=== PATIENT | female | born 1970 | race American Indian/Alaskan Native ===

== ENCOUNTER 2017-05-02 09:24 | Inpatient (IN) | payer SELFPAY ==
[2017-05-02 10:05] LABS: Hematocrit 44.1 % (30.3-42.9); Hemoglobin 14.1 gm/dl (10.1-14.3); Mean Corpuscular HGB Conc 32 % (30-34); Mean Corpuscular Hemoglobin 27 pg (28-32); Mean Corpuscular Volume 84 fl (79-97); Platelet Count 343 K/mm3 (140-440); Red Blood Count 5.24 M/mm3 (3.65-5.03); Red Cell Distribution Width 14.9 % (13.2-15.2); White Blood Count 5.1 K/mm3 (4.5-11.0)
[2017-05-02 10:09] LABS: Anion Gap 23 mmol/L; BUN/Creatinine Ratio 12.22; Blood Urea Nitrogen 11 mg/dL (7-17); Calcium 9.3 mg/dL (8.4-10.2); Carbon Dioxide 21 mmol/L (22-30); Chloride 101.2 mmol/L (98-107); Glucose 104 mg/dL (65-100); Lipase 23 units/L (13-60); Potassium 3.7 mmol/L (3.6-5.0); Sodium 141 mmol/L (137-145)
[2017-05-02] MEDS ORDERED: ZOFRAN IV ONE (10:25)
[2017-05-02] MEDS ORDERED: NACL 0.9% 1000 ML 1,000 ML IV ONE (10:25)
[2017-05-02] MEDS ORDERED: MORPHINE IV ONE (10:25)
[2017-05-02] MEDS ORDERED: DUONEB *Not for PRN Use IH ONE (10:31)
--- NOTE | 2017-05-02 10:31 | Emergency Department Report ---
HPI - General Chief Complaint: Chest Pain Time Seen by Provider: 05/02/17 10:12 - HPI HPI: This is a 46-year-old [place] female presents the emergency department with a four-day history of midsternal chest pain and epigastric pain. It is associated with some nausea and vomiting the patient says she is having trouble came down any liquids or solids. She denies any shortness of breath at this time but says that he will occur intermittently. She tried some NyQuil for her symptoms without any relief. She says she's been laying in bed secondary to the pain. She has a past medical history of asthma and hypertension but denies any history of TX, CVA, PE/DVT. No recent surgeries, long trips or immobility. ED Past Medical Hx - Past Medical History Previous Medical History?: Yes Hx Hypertension: Yes Hx Asthma: Yes - Surgical History Past Surgical History?: No - Social History Smoking Status: Current Every Day Smoker Substance Use Type: None ED Review of Systems ROS: Stated complaint: CHEST PAIN/JACQUES Other details as noted in HPI Comment: All other systems reviewed and negative Constitutional: denies: diaphoresis, weakness Eyes: denies: eye pain, eye discharge, vision change ENT: denies: ear pain, throat pain Respiratory: cough, wheezing Cardiovascular: chest pain. denies: edema Gastrointestinal: abdominal pain, nausea, vomiting Genitourinary: denies: urgency, dysuria, discharge Musculoskeletal: denies: back pain, joint swelling, arthralgia Skin: denies: rash, lesions Neurological: denies: headache, weakness, paresthesias Physical Exam - Physical Exam Vital Signs: Vital Signs 05/02/17 09:34 Temperature 98.1 F Pulse Rate 90 Respiratory 26 H Rate Blood Pressure 115/55 O2 Sat by Pulse 98 Oximetry Physical Exam: GENERAL: The patient is well-developed well-nourished. HEENT: Normocephalic. Atraumatic. Extraocular motions are intact. Patient has moist mucous membranes. Pupils equal reactive to light bilaterally. NECK: Supple. Trachea is midline. CHEST/LUNGS: There is mild expiratory wheezing throughout the chest. No tachypnea or accessory muscle use. There is no respiratory distress noted. There is reproducible chest pain along the chest wall to palpation. HEART/CARDIOVASCULAR: Regular. There is no tachycardia. There is no gallop rub or murmur. ABDOMEN: Abdomen is soft. Unable to reproduce epigastric tenderness to palpation. Patient has normal bowel sounds. There is no abdominal distention. SKIN: Skin is warm and dry. NEURO: The patient is awake, alert, and oriented. The patient is cooperative. The patient has no focal neurologic deficits. The patient has normal speech. MUSCULOSKELETAL: There is no tenderness or deformity. There is no limitation range of motion. There is no evidence of acute injury. ED Course Vital Signs 05/02/17 09:34 Temperature 98.1 F Pulse Rate 90 Respiratory 26 H Rate Blood Pressure 115/55 O2 Sat by Pulse 98 Oximetry ED Medical Decision Making - Lab Data Result diagrams: 05/02/17 09:39 05/02/17 09:39 - EKG Data -: EKG Interpreted by Me EKG shows normal: sinus rhythm, axis, intervals, QRS complexes, ST-T waves Rate: normal - EKG Data When compared to previous EKG there are: previous EKG unavailable Interpretation: normal EKG - Radiology Data Radiology results: image reviewed interpreted by me: Chest x-ray did not show any acute process. Heart is normal shape and size. No effusions. No pneumothorax. No signs of pneumonia seen. - Medical Decision Making 46-year-old female presents with mid chest pain and epigastric pain along with nausea and vomiting. Labs thus far have been unremarkable including a negative troponin and negative d-dimer. X-rays of the chest and abdomen also did not show any acute process or etiology of her symptoms. She does have some mild wheezing and was given Solu-Medrol and breathing treatments. However the patient still continues to be in discomfort and she has not had a full cardiac workup including a stress test ever. For these reasons she will be admitted to the hospital for further evaluation and treatment has been accepted for admission by the hospitalist, Dr. Cordova. - Differential Diagnosis TX, PE, asthma, pneumonia Critical Care Time: No Critical care attestation.: If time is entered above; I have spent that time in minutes in the direct care of this critically ill patient, excluding procedure time. ED Disposition Clinical Impression: Bronchospasm Chest pain Qualifiers: Chest pain type: unspecified Qualified Code(s): R07.9 - Chest pain, unspecified Abdominal pain Qualifiers: Abdominal location: epigastric Qualified Code(s): R10.13 - Epigastric pain Nausea & vomiting Qualifiers: Vomiting type: unspecified Vomiting Intractability: non-intractable Qualified Code(s): R11.2 - Nausea with vomiting, unspecified Disposition: DC-09 OP ADMIT IP TO THIS HOSP Is pt being admited?: Yes Does the pt Need Aspirin: Yes Condition: Stable Instructions: Chest Pain (ED) Referrals: PRIMARY CARE, [Primary Care Provider] - 3-5 Days Time of Disposition: 13:15
[2017-05-02 10:41] LABS: Basophils % (Manual) 0 % (0.0-1.8); Blastocytes % (Manual) 0 %; Diff Status Complete; Eosinophils % (Manual) 0 % (0.0-4.3); RBC Morphology Normal
[2017-05-02 11:08] LABS: Alanine Aminotransferase 7 units/L (7-56); Albumin 3.7 g/dL (3.9-5); Albumin/Globulin Ratio 0.9 %; Alkaline Phosphatase 79 units/L (35-129); Lipase 22 units/L (13-60); Total Protein 7.8 g/dL (6.3-8.2)
[2017-05-02 12:25] LABS: Bacteria,Urine 2+ /HPF (Negative); Bilirubin,Urine SM (Negative); Blood,Urine NEG (Negative); Ketones,Urine 80 mg/dL (Negative); Leukocyte Esterase,Urine TR (Negative); Mucus,Urine 3+ /HPF; Nitrite,Urine NEG (Negative)
--- NOTE | 2017-05-02 12:43 | XRay Report ---
ABDOMINAL SERIES: History: Abdominal pain, chest pain. AP chest demonstrates linear scarring or atelectasis in both perihilar regions. Otherwise the lungs are clear. Normal heart and mediastinal structures. There is no evidence of free air beneath the diaphragms. The gas pattern within the abdomen is unremarkable. There is no evidence of bowel dilatation, significant air-fluid levels, or masses. Organ shadows are unremarkable. IMPRESSION: Abdominal series within normal limits.
[2017-05-02] MEDS ORDERED: PROVENTIL IH ONE (13:06)
--- NOTE | 2017-05-02 13:06 | Admit Criteria Form ---
Admission Criteria Documentation: CARDIOLOGY GRG Clinical Indications for Admission to Inpatient Care ( Place 'X' for any and all applicable criteria): Hospital admission is needed for appropriate care of the patient because of ANY ONE of the following (1): [ ] I. Hemodynamic instability as indicated by ALL of the following (1)(2)(3) (4)(5) [ ]a) Vital signs or other findings not as expected for chronic patient condition or baseline [ ]b) Instability indicated by ANY ONE of the following: [ ]i) Hypotension [ ]ii) Symptomatic Tachycardia unresponsive to treatment ( e.g., analgesia, fluids, sedation as indicated) [ ]iii) Inadequate perfusion indicated by ANY ONE of the following: [ ] 1) Lactic acidosis (> 2 mmol/L) [ ] 2) New abnormal capillary refill (> 3 seconds) [ ] 3) Reduced urine output [ ] 4) New altered mental status [ ]iv) Orthostatic vital sign changes unresponsive to treatment (e.g., fluids) [ ]v) IV inotropic or vasopressor medication required to maintain adequate blood pressure or perfusion [ ] II. Severe heart failure as indicated by ANY ONE of the following(17)(18) [ ]a) Respiratory distress [ ]b) Hypotension [ ]c) Anasarca (refractory to outpatient therapy) [ ]d) Cardiac arrhythmias of immediate concern [ ]e) Myocardial ischemia [ ] III. Cardiac arrhythmias or findings of immediate concern indicated by ANY ONE of the following (19)(20): [ ] a) Heart rhythms that are inherently dangerous or unstable indicated by ANY ONE of the following (21)(22)(23): [ ] i) Resuscitated ventricular fibrillation or cardiac arrest [ ] ii) Ventricular escape rhythm [ ] iii) Sustained ventricular tachycardia (30 seconds or more of ventricular rhythm at greater than 100 beats per minute) [ ] iv) Nonsustained ventricular tachycardia and ANY ONE of the following: [ ] 1) Suspected cardiac ischemia as cause or consequence of ventricular tachycardia [ ] 2) In setting of acute myocarditis [ ] b) Unstable cardiac conduction defects indicated by ANY ONE of the following(23)(24)(25) [ ] i) Type II second-degree atrioventricular block [ ]ii) Third-degree atrioventricular block [ ]iii) New-onset left bundle branch block with suspected myocardial ischemia [ ]c) Any heart rhythm and ANY ONE of the following (21)(22)(26)(27) (28) [ ] i) Continuous long-term ECG monitoring needed (e.g., initiation of drug requiring monitoring for more than 24 hours) [ ] ii) Patient has automatic implanted cardioverter defibrillator that is repeatedly firing, malfunctioning, or in need of immediate adjustment of settings beyond the scope of ambulatory or observation care [ ]d) Heart rhythms of concern due to ANY ONE of the following: [ ] i) Hypotension [ ] ii) Respiratory distress [ ] iii) Association with other significant symptoms (e.g., bradycardia with syncope or ongoing dizziness, supraventricular tachycardia with chest pain (14)(15)(17) [ ] IV. Monitoring for cardiac contusion beyond the scope of observation care needed [A](30)(31)(32) [ ] V. Surgical or device complication (e.g., valve replacement complication , pacemaker dysfunction) (35)(41)(44)(45)(46) [ ] . Inpatient palliative care needed. [B](49) Also use Inpatient Palliative Care Criteria [ ] VII. Nonbacterial thrombotic (marantic) endocarditis (36)(43)(47)(48) [X ] VIII. Cardiology condition, symptom, or finding for which emergency and observation care has failed or are not considered appropriate. [ ] IX. Acute valvular disease requiring inpatient as indicated by ANY ONE of the following (41) [ ]a) Acute valvular regurgitation (42) [ ]b) Noninfectious valvulitis (43) [ ]c) Obstructive valve thrombosis [ ]d) Paravalvular leak [ ]e) Other significant valvular disorder remaining after emergency or observation level of care (as appropriate) [ ]X. Pericardial disease requiring inpatient treatment as indicated by ANY ONE of the following (33)(34)(35)(36)(37) [ ]a) Suspected tamponade (38)(39)(40) [ ]b) Hemopericardium [ ]c) Other significant pericardial disorder remaining after emergency or observation level of care (as appropriate) [ ] XI. Cardiac ischemia beyond scope of emergency and observation care. [ ] XII. Hypertension requiring inpatient treatment as indicated by ANY ONE of the following (6)(7)(8) [ ]a) SBP greater than 220 mm Hg or DBP greater than 120 mmHg despite treatment [ ]b) SBP greater than 140 mm Hg or DBP greater than 100 mm Hg with evidence of acute end organ damage as indicated by ANY ONE of the following [ ] i) Altered mental status [ ] ii) Acute renal failure as indicated by new onset of ANY ONE of the following (9)(10)(11)(12)(13) [ ]1) 3-fold rise in serum creatinine from baseline [ ]2) Serum creatinine greater than 4 mg/dL ( 354 micromoles/L) with acute rise greater than 0.5 mg/dL (44.2 micromoles/L) [ ]3) Reduction of more than 75% in estimated glomerular filtration rate from baseline [ ]4) Estimated glomerular filtration rate less than 35 mL/min/1.73m2 (0.59 mL/sec/1.73m2) in child up to 18 years of age [ ]5) Cessation of urine output indicated by ALL of the following [ ]A. Adequate volume status [ ]B. Inadequate urine output as indicated by ANY ONE of the following [ ]a. Urine output less than 0.3 mL/kg/hr for 24 hours [ ]b. Anuria (urine output less than 0.1 mL/kg/hr) for 12 hours [ ] iii) Aortic dissection [ ] iv) Myocardial Ischemia [ ] v) Left ventricular heart failure [ ]vi) Retinal Hemorrhage [ ]vii) Other significant finding [ ]c) Hypertension in child requiring inpatient treatment as indicated by ALL of the following(14)(15)(16) [ ] i) Outpatient treatment not effective, not available, or not appropriate [ ]ii) SBP or DBP greater than 95th percentile for age [ ]iii) Evidence of acute end organ damage as indicated by ANY ONE of the following [ ]1) Altered mental status [ ]2) Acute renal failure as indicated by new onset of ANY ONE of the following(9)(10)(11)(12)(13) [ ]A. 3-fold rise in serum creatinine from baseline [ ]B. Serum creatinine greater than 4 mg/dL (354 micromoles/L) with acute rise greater than 0.5 mg/dL (44.2 micromoles/L) [ ]C. Reduction of more than 75% in estimated glomerular filtration rate from baseline [ ]D. Estimated glomerular filtration rate less than 35 mL/min/1.73m2 (0.59 mL/sec/1.73m2) in child up to 18 years of age [ ]E. Cessation of urine output indicated by ALL of the following [ ]a. Adequate volume status [ ]b. Inadequate urine output as indicated by ANY ONE of the following [ ]i) Urine output less than 0.3 mL/kg/hr for 24 hours [ ]ii) Anuria ( urine output less than 0.1 mL/kg/hr) for 12 hours [ ]3) Severe headache [ ]4) Visual disturbance [ ]5) Retinal hemorrhage [ ]6) Other significant finding [ ]XIII. Complications of transplanted heart indicated by ANY ONE of the following(61): [ ]a) Acute graft rejection requiring inpatient management (eg, intravenous immunosuppression)(62)(63) [ ]b) Acute graft heart failure indicated by ANY ONE of the following(64): [ ]i) Hemodynamic instability [ ]ii) Cardiac arrhythmias of immediate concern [ ]iii) Pulmonary edema that is very severe (eg, mechanical ventilation needed, imminent or likely, need for 100% oxygen to keep oxygen saturation above 90%) [ ]iv) Pulmonary edema that is persistent as indicated by ALL of the following: [ ]1) New need for oxygen therapy to keep oxygen saturation above 90% (or increased FiO2 need from baseline) [ ]2) Has not improved sufficiently with emergency department or observation care IV diuretics or other heart failure treatments[E] [ ]v) Altered mental status that is severe or persistent [ ]vi) Increased creatinine (new on laboratory test) with reduction of more than 50% in estimated glomerular filtration rate from baseline [ ]vii) Progressively (ongoing) rising creatinine (known from past laboratory test) with reduction of more than 25% in estimated glomerular filtration rate from baseline [ ]viii) Acute renal failure [ ]ix) Acute peripheral ischemia (eg, examination shows pulseless, cool, mottled, or cyanotic extremity) [ ]x) Pulmonary artery catheter monitoring needed [ ]xi) Other sign or symptom of heart failure requiring inpatient treatment (ie, too severe or not responsive to outpatient and observation care treatment) [ ]c) Infection requiring inpatient management (eg, Hemodynamic instability, need for intravenous antimicrobial treatment)(66)(67)(68)(69)(70) [ ]d) Cardiac allograft vasculopathy requiring inpatient management ( eg evidence of cardiac ischemia)(71) [ ]e) Other complication of transplanted heart (eg, stroke, severe pulmonary hypertension, severe valvular dysfunction) requiring inpatient management(72) The original [facility] [employer] content created by [facility] has been revised. The portions of the content which have been revised are identified through the use of italic text or in bold, and [facility] has neither reviewed nor approved the modified material. All other unmodified content is copyright [facility] [employer]. Please see references footnoted in the original [facility] [employer] edition 2016 Admission Criteria Met: Yes
[2017-05-02 13:15] LABS: Bilirubin,Direct < 0.2 mg/dL (0-0.2); Bilirubin,Indirect 0.2 mg/dL
[2017-05-02] MEDS ORDERED: BABY ASPIRIN PO ONE (13:15)
[2017-05-02] MEDS ORDERED: MACROBID PO ONE (14:02)
[2017-05-02] MEDS: HEPARIN SUB-Q SCH ×2 (14:12→22:01)
[2017-05-02] MEDS ORDERED: AMBIEN PO PRN (22:08)
[2017-05-02] MEDS ORDERED: DULCOLAX PR PRN (22:08)
[2017-05-02] MEDS ORDERED: PERCOCET 5/325 PO PRN (22:08)
[2017-05-02] MEDS ORDERED: TYLENOL PO PRN (22:08)
[2017-05-02] MEDS ORDERED: MILK OF MAGNESIA PO PRN (22:08)
--- NOTE | 2017-05-02 22:08 | History and Physical Report ---
History of Present Illness Date of examination: 05/02/17 Date of admission: 05/02/17 13:15 Chief complaint: Chest pain for 4 days History of present illness: HPI: This is a 46-year-old English female presents the emergency department with a four-day history of midsternal chest pain and epigastric pain. It is associated with some nausea and vomiting .The patient says she is having trouble swalowing liquids or solids. She denies any shortness of breath . She says she's been laying in bed secondary to the pain. She has a past medical history of asthma and hypertension but denies any history of RI, CVA, PE /DVT. No recent surgeries, long trips or immobilization. Previous Medical History?: Yes Hx Hypertension: Yes Hx Asthma: Past Surgical History?: No - Social History Smoking Status: Current Every Day [id number] Substance Use Type: None ROS: Stated complaint: CHEST PAIN/JACQUES Other details as noted in HPI Comment: All other systems reviewed and negative Constitutional: denies: diaphoresis, weakness Eyes: denies: eye pain, eye discharge, vision change ENT: denies: ear pain, throat pain Respiratory: cough, wheezing Cardiovascular: chest pain. denies: edema Gastrointestinal: abdominal pain, nausea, vomiting Genitourinary: denies: urgency, dysuria, discharge Musculoskeletal: denies: back pain, joint swelling, arthralgia Skin: denies: rash, lesions Neurological: denies: headache, weakness, paresthesias Medications and Allergies Allergies Allergy/AdvReac Type Severity Reaction Status Date / Time Sulfa (Sulfonamide Allergy Hives Verified 05/02/17 09:34 Antibiotics) Home Medications Medication Instructions Recorded Confirmed Last Taken Type No Known Home Medications [No 05/02/17 05/02/17 Unknown History Reported Home Medications] Active Meds: Active Medications Heparin Sodium (Porcine) (Heparin) 5,000 unit SUB-Q Q8HR JALEEL Last Admin: 05/02/17 22:01 Dose: 5,000 unit Exam - Physical Exam Narrative exam: In discomfort sec to pain - Constitutional Vitals: Temp Pulse Resp BP Pulse Ox 98.4 F 60 20 134/84 93 05/02/17 21:17 05/02/17 21:17 05/02/17 21:17 05/02/17 21:17 05/02/17 21:20 General appearance: Present: no acute distress, well-nourished - EENT Eyes: Present: PERRL ENT: hearing intact, clear oral mucosa - Neck Neck: Present: supple, normal ROM - Respiratory Respiratory effort: normal Respiratory: bilateral: CTA - Cardiovascular Heart rate: 70 Rhythm: regular Heart Sounds: Present: S1 & S2. Absent: rub, click - Extremities Extremities: no ischemia, pulses intact, pulses symmetrical, No edema Peripheral Pulses: within normal limits - Abdominal General gastrointestinal: Present: soft, non-tender, non-distended, normal bowel sounds Female genitourinary: Present: normal - Integumentary Integumentary: Present: clear, warm, dry - Musculoskeletal Musculoskeletal: gait normal, strength equal bilaterally - Psychiatric Psychiatric: appropriate mood/affect, intact judgment & insight - Neurologic Neurologic: CNII-XII intact, moves all extremities - Allied Health Allied health notes reviewed: nursing, case management Results - Labs CBC & Chem 7: 05/02/17 09:39 05/03/17 05:46 Labs: Laboratory Last Values WBC 5.1 K/mm3 (4.5-11.0) 05/02/17 09:39 RBC 5.24 M/mm3 (3.65-5.03) H 05/02/17 09:39 Hgb 14.1 gm/dl (10.1-14.3) 05/02/17 09:39 Hct 44.1 % (30.3-42.9) H 05/02/17 09:39 MCV 84 fl (79-97) 05/02/17 09:39 MCH 27 pg (28-32) L 05/02/17 09:39 MCHC 32 % (30-34) 05/02/17 09:39 RDW 14.9 % (13.2-15.2) 05/02/17 09:39 Plt Count 343 K/mm3 (140-440) 05/02/17 09:39 Add Manual Diff Complete 05/02/17 09:39 Total Counted 100 05/02/17 09:39 Seg Neuts % (Manual) 51.0 % (40.0-70.0) 05/02/17 09:39 Band Neutrophils % 3.0 % 05/02/17 09:39 Lymphocytes % (Manual) 33.0 % (13.4-35.0) 05/02/17 09:39 Reactive Lymphs % (Man) 0 % 05/02/17 09:39 Monocytes % (Manual) 12.0 % (0.0-7.3) H 05/02/17 09:39 Eosinophils % (Manual) 0 % (0.0-4.3) 05/02/17 09:39 Basophils % (Manual) 0 % (0.0-1.8) 05/02/17 09:39 Metamyelocytes % 1.0 % 05/02/17 09:39 Myelocytes % 0 % 05/02/17 09:39 Promyelocytes % 0 % 05/02/17 09:39 Blast Cells % 0 % 05/02/17 09:39 Nucleated RBC % Not Reportable 05/02/17 09:39 Seg Neutrophils # Man 2.6 K/mm3 (1.8-7.7) 05/02/17 09:39 Band Neutrophils # 0.2 K/mm3 05/02/17 09:39 Lymphocytes # (Manual) 1.7 K/mm3 (1.2-5.4) 05/02/17 09:39 Abs React Lymphs (Man) 0.0 K/mm3 05/02/17 09:39 Monocytes # (Manual) 0.6 K/mm3 (0.0-0.8) 05/02/17 09:39 Eosinophils # (Manual) 0.0 K/mm3 (0.0-0.4) 05/02/17 09:39 Basophils # (Manual) 0.0 K/mm3 (0.0-0.1) 05/02/17 09:39 Metamyelocytes # 0.1 K/mm3 05/02/17 09:39 Myelocytes # 0.0 K/mm3 05/02/17 09:39 Promyelocytes # 0.0 K/mm3 05/02/17 09:39 Blast Cells # 0.0 K/mm3 05/02/17 09:39 WBC Morphology Not Reportable 05/02/17 09:39 Hypersegmented Neuts Not Reportable 05/02/17 09:39 Hyposegmented Neuts Not Reportable 05/02/17 09:39 Hypogranular Neuts Not Reportable 05/02/17 09:39 Smudge Cells Not Reportable 05/02/17 09:39 Toxic Granulation Not Reportable 05/02/17 09:39 Toxic Vacuolation Not Reportable 05/02/17 09:39 Dohle Bodies Not Reportable 05/02/17 09:39 Pelger-Huet Anomaly Not Reportable 05/02/17 09:39 Tavia Rods Not Reportable 05/02/17 09:39 Platelet Estimate Not Reportable 05/02/17 09:39 Clumped Platelets Not Reportable 05/02/17 09:39 Plt Clumps, EDTA Not Reportable 05/02/17 09:39 Large Platelets Not Reportable 05/02/17 09:39 Giant Platelets Not Reportable 05/02/17 09:39 Platelet Satelliting Not Reportable 05/02/17 09:39 Plt Morphology Comment Not Reportable 05/02/17 09:39 RBC Morphology Normal 05/02/17 09:39 Dimorphic RBCs Not Reportable 05/02/17 09:39 Polychromasia Not Reportable 05/02/17 09:39 Hypochromasia Not Reportable 05/02/17 09:39 Poikilocytosis Not Reportable 05/02/17 09:39 Anisocytosis Not Reportable 05/02/17 09:39 Microcytosis Not Reportable 05/02/17 09:39 Macrocytosis Not Reportable 05/02/17 09:39 Spherocytes Not Reportable 05/02/17 09:39 Pappenheimer Bodies Not Reportable 05/02/17 09:39 Sickle Cells Not Reportable 05/02/17 09:39 Target Cells Not Reportable 05/02/17 09:39 Tear Drop Cells Not Reportable 05/02/17 09:39 Ovalocytes Not Reportable 05/02/17 09:39 Helmet Cells Not Reportable 05/02/17 09:39 [place] Bodies Not Reportable 05/02/17 09:39 [place] Rings Not Reportable 05/02/17 09:39 [place] Cells Not Reportable 05/02/17 09:39 Bite Cells Not Reportable 05/02/17 09:39 Crenated Cell Not Reportable 05/02/17 09:39 Elliptocytes Not Reportable 05/02/17 09:39 Acanthocytes (Spur) Not Reportable 05/02/17 09:39 Rouleaux Not Reportable 05/02/17 09:39 Hemoglobin C Crystals Not Reportable 05/02/17 09:39 Schistocytes Not Reportable 05/02/17 09:39 Malaria parasites Not Reportable 05/02/17 09:39 Dung Bodies Not Reportable 05/02/17 09:39 Hem Pathologist Commnt No 05/02/17 09:39 D-Dimer 138.19 ng/mlDDU (0-234) 05/02/17 10:35 Sodium 141 mmol/L (137-145) 05/02/17 09:39 Potassium 3.7 mmol/L (3.6-5.0) 05/02/17 09:39 Chloride 101.2 mmol/L (98-107) 05/02/17 09:39 Carbon Dioxide 21 mmol/L (22-30) L 05/02/17 09:39 Anion Gap 23 mmol/L 05/02/17 09:39 BUN 11 mg/dL (7-17) 05/02/17 09:39 Creatinine 0.9 mg/dL (0.7-1.2) 05/02/17 09:39 Estimated GFR > 60 ml/min 05/02/17 09:39 BUN/Creatinine Ratio 12.22 % 05/02/17 09:39 Glucose 104 mg/dL (65-100) H 05/02/17 09:39 Calcium 9.3 mg/dL (8.4-10.2) 05/02/17 09:39 Total Bilirubin 0.40 mg/dL (0.1-1.2) 05/02/17 10:35 Direct Bilirubin < 0.2 mg/dL (0-0.2) 05/02/17 10:35 Indirect Bilirubin 0.2 mg/dL 05/02/17 10:35 AST 20 units/L (5-40) 05/02/17 10:35 ALT 7 units/L (7-56) 05/02/17 10:35 Alkaline Phosphatase 79 units/L (35-129) 05/02/17 10:35 Troponin T < 0.010 ng/mL (0.00-0.029) 05/02/17 15:25 Total Protein 7.8 g/dL (6.3-8.2) 05/02/17 10:35 Albumin 3.7 g/dL (3.9-5) L 05/02/17 10:35 Albumin/Globulin Ratio 0.9 % 05/02/17 10:35 Lipase 22 units/L (13-60) 05/02/17 10:35 HCG, Qual Negative (Negative) 05/02/17 10:15 Urine Color Rosio (Yellow) 05/02/17 11:23 Urine Turbidity Cloudy (Clear) 05/02/17 11:23 Urine pH 5.0 (5.0-7.0) 05/02/17 11:23 Ur Specific [place] 1.035 (1.003-1.030) H 05/02/17 11:23 Urine Protein 100 mg/dl mg/dL (Negative) 05/02/17 11:23 Urine Glucose (UA) Neg mg/dL (Negative) 05/02/17 11:23 Urine Ketones 80 mg/dL (Negative) 05/02/17 11:23 Urine Blood Neg (Negative) 05/02/17 11:23 Urine Nitrite Neg (Negative) 05/02/17 11:23 Urine Bilirubin Sm (Negative) 05/02/17 11:23 Urine Ictotest Negative (Negative) 05/02/17 11:23 Urine Urobilinogen 4.0 mg/dL (<2.0) 05/02/17 11:23 Ur Leukocyte Esterase Tr (Negative) 05/02/17 11:23 Urine WBC (Auto) 18.0 /HPF (0.0-6.0) H 05/02/17 11:23 Urine RBC (Auto) 19.0 /HPF (0.0-6.0) 05/02/17 11:23 U Epithel Cells (Auto) 55.0 /HPF (0-13.0) H 05/02/17 11:23 Urine Bacteria (Auto) 2+ /HPF (Negative) 05/02/17 11:23 Urine Mucus 3+ /HPF 05/02/17 11:23 Urine HCG, Qual Negative (Negative) 05/02/17 11:23 Short CBC 05/02/17 Range/Units 09:39 WBC 5.1 (4.5-11.0) K/mm3 Hgb 14.1 (10.1-14.3) gm/dl Hct 44.1 H (30.3-42.9) % Plt Count 343 (140-440) K/mm3 BMP 05/02/17 05/03/17 09:39 05:46 Sodium 141 142 Potassium 3.7 3.3 L Chloride 101.2 102.7 Carbon Dioxide 21 L 24 BUN 11 12 Creatinine 0.9 0.6 L Glucose 104 H 97 Calcium 9.3 8.9 Cardiac Enzymes 05/02/17 05/02/17 05/02/17 Range/Units 09:39 13:01 15:25 Total Creatine Kinase (30-135) units/L CK-MB (CK-2) (0.0-4.0) ng/mL Troponin T < 0.010 < 0.010 < 0.010 (0.00-0.029) ng/mL 05/02/17 Range/Units 22:27 Total Creatine Kinase 73 (30-135) units/L CK-MB (CK-2) < 1.0 (0.0-4.0) ng/mL Troponin T < 0.010 (0.00-0.029) ng/mL Liver Function 05/02/17 05/03/17 Range/Units 10:35 05:46 Total Bilirubin 0.40 0.30 (0.1-1.2) mg/dL Direct Bilirubin < 0.2 (0-0.2) mg/dL AST 20 12 (5-40) units/L ALT 7 6 L (7-56) units/L Alkaline Phosphatase 79 73 (35-129) units/L Albumin 3.7 L 3.8 L (3.9-5) g/dL Urine 05/02/17 Range/Units 11:23 Urine Color Rosio (Yellow) Urine pH 5.0 (5.0-7.0) Ur Specific [place] 1.035 H (1.003-1.030) Urine Protein 100 mg/dl (Negative) mg/dL Urine Glucose (UA) Neg (Negative) mg/dL - Imaging and Cardiology EKG: report reviewed (NSR-No acute changes) Chest x-ray: report reviewed (Abd series within Nl limits) Assessment and Plan Advance Directives: Yes (FC) VTE prophylaxis?: Chemical Plan of care discussed with patient/family: Yes - Patient Problems (1) Chest pain Current Visit: Yes Status: Acute Qualifiers: Chest pain type: unspecified Ischemic chest pain type: I Qualified Code(s ): R07.9 - Chest pain, unspecified Plan to address problem: I am more in favor of costochondritis.There is chest wall tenderness. Serial cardiac enzymes and Lexiscan ordered In view of Gastritis will start her on ultram and not NSAIDS (2) Acute gastritis Current Visit: Yes Status: Acute Qualifiers: Gastritis type: G Gastritis bleeding: without bleeding Plan to address problem: iv famotidine for now and transition to po Protonix at discharge (3) Asthma Current Visit: Yes Status: Acute Qualifiers: Asthma severity: mild intermittent Asthma complication type: A Plan to address problem: Proventil MDI qid prn (4) DVT prophylaxis Current Visit: Yes Status: Acute Plan to address problem: On Lovenox
[2017-05-02] MEDS: ZOFRAN IV PRN (22:40)
[2017-05-02 23:03] LABS: Creatine Kinase 73 units/L (30-135)
[2017-05-02 23:04] LABS: Creatine Kinase MB < 1.0 ng/mL (0.0-4.0)
[2017-05-03] MEDS: D5NS 1,000 ML IV SCH (05:58)
[2017-05-03] MEDS: ZOFRAN IV PRN ×2 (05:59→13:26)
[2017-05-03] MEDS: HEPARIN SUB-Q SCH ×3 (06:03→22:48)
[2017-05-03 06:56] LABS: Alanine Aminotransferase 6 units/L (7-56); Albumin 3.8 g/dL (3.9-5); Albumin/Globulin Ratio 1.1 %; Alkaline Phosphatase 73 units/L (35-129); Anion Gap 19 mmol/L; Blood Urea Nitrogen 12 mg/dL (7-17); Calcium 8.9 mg/dL (8.4-10.2); Carbon Dioxide 24 mmol/L (22-30); Chloride 102.7 mmol/L (98-107); Glucose 97 mg/dL (65-100); Potassium 3.3 mmol/L (3.6-5.0); Sodium 142 mmol/L (137-145); Total Protein 7.4 g/dL (6.3-8.2)
[2017-05-03] MEDS: DILAUDID IV PRN ×2 (07:22→13:26)
[2017-05-03] MEDS ORDERED: PROAIR IH PRN (07:25)
[2017-05-03 07:36] LABS: Creatine Kinase 62 units/L (30-135)
[2017-05-03 07:38] LABS: Creatine Kinase MB < 1.0 ng/mL (0.0-4.0)
[2017-05-03] MEDS ORDERED: ULTRAM PO PRN (08:00)
[2017-05-03] MEDS ORDERED: PROVENTIL IH PRN ×2 (08:00)
[2017-05-03] MEDS ORDERED: LEXISCAN IV ONE ×2 (09:40→09:42)
[2017-05-03] MEDS ORDERED: PEPCID IV SCH (10:00)
[2017-05-03] MEDS: PEPCID PO SCH ×2 (13:24→22:48)
[2017-05-03] MEDS ORDERED: K-DUR PO ONE (15:23)
--- NOTE | 2017-05-03 15:27 | Discharge Summary ---
Providers - Providers Date of Admission: 05/02/17 13:15 Attending physician: KEIRY BLUM MD Primary care physician: [facility] Hospitalization Condition: Stable Hospital course: This is a 46-year-old [place] female presents the emergency department with a four-day history of midsternal chest pain and epigastric pain. that began after vomiting for 4 days, admits to a sick contact after eating chicken from [employer] and has now been vomiting; her Son in law had similar symptoms 5 days ago which have now resolved. (1) Chest pain ACS ruled out, MPI negative, likely due to esophageal irritation from vomiting (2)Acute gastroenteritis, likely viral (infectious) continue supportive care, IVF and antiemetics (3) Asthma, mild intermittent not in exacerbation Proventil MDI qid prn (4) Hypokalemia replete IV DVT prophylaxis On Lovenox Disposition: DC- TO HOME OR SELFCARE Time spent for discharge: 32 minutes Core Measure Documentation - Palliative Care Palliative Care/ Comfort Measures: Not Applicable - Core Measures Any of the following diagnoses?: none Exam - Constitutional Vitals: Temp Pulse Resp BP Pulse Ox 97.6 F 60 16 150/70 96 05/03/17 12:08 05/03/17 12:08 05/03/17 12:08 05/03/17 12:08 05/03/17 12:08 General appearance: Present: no acute distress, well-nourished - EENT Eyes: Present: PERRL ENT: hearing intact, clear oral mucosa - Neck Neck: Present: supple, normal ROM - Respiratory Respiratory effort: normal Respiratory: bilateral: CTA - Cardiovascular Heart Sounds: Present: S1 & S2. Absent: rub, click - Extremities Extremities: pulses symmetrical, No edema Peripheral Pulses: within normal limits - Abdominal General gastrointestinal: Present: soft, non-tender, non-distended, normal bowel sounds Female genitourinary: Present: normal - Integumentary Integumentary: Present: clear, warm, dry - Musculoskeletal Musculoskeletal: gait normal, strength equal bilaterally - Psychiatric Psychiatric: appropriate mood/affect, intact judgment & insight - Neurologic Neurologic: CNII-XII intact, moves all extremities Plan Follow up with: PRIMARY CARE, [Primary Care Provider] - 3-5 Days [facility] [Outside] - 7 Days Prescriptions: Ondansetron [Zofran Odt] 4 mg PO Q6H PRN #20 tab.rapdis PRN Reason: Nausea
[2017-05-03] MEDS ORDERED: COMPAZINE IV PRN (18:38)
[2017-05-03] MEDS ORDERED: ZOFRAN IV PRN (18:39)
--- NOTE | 2017-05-03 18:45 | Progress Note ---
Assessment and Plan Assessment and plan: This is a 46-year-old Luxembourger female presents the emergency department with a four-day history of midsternal chest pain and epigastric pain. that began after vomiting for 4 days, admits to a sick contact after eating chicken from [employer] and has now been vomiting; her Son in law had similar symptoms 5 days ago which have now resolved. (1) Chest pain ACS ruled out, MPI negative, likely due to esophageal irritation from vomiting (2)Acute gastroenteritis, likely viral (infectious) continue supportive care, IVF and antiemetics (3) Asthma, mild intermittent not in exacerbation Proventil MDI qid prn (4) Hypokalemia replete IV DVT prophylaxis On Lovenox History Interval history: still c/o intractable N/V. unable to keep food down Hospitalist Physical - Physical exam Narrative exam: General appearance: Present: no acute distress, well-nourished - EENT Eyes: Present: PERRL ENT: hearing intact, clear oral mucosa - Neck Neck: Present: supple, normal ROM - Respiratory Respiratory effort: normal Respiratory: bilateral: CTA - Cardiovascular Heart Sounds: Present: S1 & S2. Absent: rub, click - Extremities Extremities: no ischemia, pulses intact, pulses symmetrical, No edema Peripheral Pulses: within normal limits - Abdominal General gastrointestinal: Present: soft,epigastrium tender, non-distended, normal bowel sounds Female genitourinary: Present: normal - Integumentary Integumentary: Present: clear, warm, dry - Musculoskeletal Musculoskeletal: gait normal, strength equal bilaterally - Psychiatric Psychiatric: appropriate mood/affect, intact judgment & insight - Neurologic Neurologic: CNII-XII intact, moves all extremities - Allied Health Allied health notes reviewed: nursing, case management - Constitutional Vitals: Temp Pulse Resp BP Pulse Ox 98.3 F 70 16 106/63 91 05/03/17 16:12 05/03/17 16:12 05/03/17 16:12 05/03/17 16:12 05/03/17 16:12 General appearance: Present: no acute distress, well-nourished Results - Labs CBC & Chem 7: 05/02/17 09:39 05/03/17 05:46 Labs: Laboratory Last Values WBC 5.1 K/mm3 (4.5-11.0) 05/02/17 09:39 RBC 5.24 M/mm3 (3.65-5.03) H 05/02/17 09:39 Hgb 14.1 gm/dl (10.1-14.3) 05/02/17 09:39 Hct 44.1 % (30.3-42.9) H 05/02/17 09:39 MCV 84 fl (79-97) 05/02/17 09:39 MCH 27 pg (28-32) L 05/02/17 09:39 MCHC 32 % (30-34) 05/02/17 09:39 RDW 14.9 % (13.2-15.2) 05/02/17 09:39 Plt Count 343 K/mm3 (140-440) 05/02/17 09:39 Add Manual Diff Complete 05/02/17 09:39 Total Counted 100 05/02/17 09:39 Seg Neuts % (Manual) 51.0 % (40.0-70.0) 05/02/17 09:39 Band Neutrophils % 3.0 % 05/02/17 09:39 Lymphocytes % (Manual) 33.0 % (13.4-35.0) 05/02/17 09:39 Reactive Lymphs % (Man) 0 % 05/02/17 09:39 Monocytes % (Manual) 12.0 % (0.0-7.3) H 05/02/17 09:39 Eosinophils % (Manual) 0 % (0.0-4.3) 05/02/17 09:39 Basophils % (Manual) 0 % (0.0-1.8) 05/02/17 09:39 Metamyelocytes % 1.0 % 05/02/17 09:39 Myelocytes % 0 % 05/02/17 09:39 Promyelocytes % 0 % 05/02/17 09:39 Blast Cells % 0 % 05/02/17 09:39 Nucleated RBC % Not Reportable 05/02/17 09:39 Seg Neutrophils # Man 2.6 K/mm3 (1.8-7.7) 05/02/17 09:39 Band Neutrophils # 0.2 K/mm3 05/02/17 09:39 Lymphocytes # (Manual) 1.7 K/mm3 (1.2-5.4) 05/02/17 09:39 Abs React Lymphs (Man) 0.0 K/mm3 05/02/17 09:39 Monocytes # (Manual) 0.6 K/mm3 (0.0-0.8) 05/02/17 09:39 Eosinophils # (Manual) 0.0 K/mm3 (0.0-0.4) 05/02/17 09:39 Basophils # (Manual) 0.0 K/mm3 (0.0-0.1) 05/02/17 09:39 Metamyelocytes # 0.1 K/mm3 05/02/17 09:39 Myelocytes # 0.0 K/mm3 05/02/17 09:39 Promyelocytes # 0.0 K/mm3 05/02/17 09:39 Blast Cells # 0.0 K/mm3 05/02/17 09:39 WBC Morphology Not Reportable 05/02/17 09:39 Hypersegmented Neuts Not Reportable 05/02/17 09:39 Hyposegmented Neuts Not Reportable 05/02/17 09:39 Hypogranular Neuts Not Reportable 05/02/17 09:39 Smudge Cells Not Reportable 05/02/17 09:39 Toxic Granulation Not Reportable 05/02/17 09:39 Toxic Vacuolation Not Reportable 05/02/17 09:39 Dohle Bodies Not Reportable 05/02/17 09:39 Pelger-Huet Anomaly Not Reportable 05/02/17 09:39 Tavia Rods Not Reportable 05/02/17 09:39 Platelet Estimate Not Reportable 05/02/17 09:39 Clumped Platelets Not Reportable 05/02/17 09:39 Plt Clumps, EDTA Not Reportable 05/02/17 09:39 Large Platelets Not Reportable 05/02/17 09:39 Giant Platelets Not Reportable 05/02/17 09:39 Platelet Satelliting Not Reportable 05/02/17 09:39 Plt Morphology Comment Not Reportable 05/02/17 09:39 RBC Morphology Normal 05/02/17 09:39 Dimorphic RBCs Not Reportable 05/02/17 09:39 Polychromasia Not Reportable 05/02/17 09:39 Hypochromasia Not Reportable 05/02/17 09:39 Poikilocytosis Not Reportable 05/02/17 09:39 Anisocytosis Not Reportable 05/02/17 09:39 Microcytosis Not Reportable 05/02/17 09:39 Macrocytosis Not Reportable 05/02/17 09:39 Spherocytes Not Reportable 05/02/17 09:39 Pappenheimer Bodies Not Reportable 05/02/17 09:39 Sickle Cells Not Reportable 05/02/17 09:39 Target Cells Not Reportable 05/02/17 09:39 Tear Drop Cells Not Reportable 05/02/17 09:39 Ovalocytes Not Reportable 05/02/17 09:39 Helmet Cells Not Reportable 05/02/17 09:39 Jean-[place] Bodies Not Reportable 05/02/17 09:39 [place] Rings Not Reportable 05/02/17 09:39 [place] Cells Not Reportable 05/02/17 09:39 Bite Cells Not Reportable 05/02/17 09:39 Crenated Cell Not Reportable 05/02/17 09:39 Elliptocytes Not Reportable 05/02/17 09:39 Acanthocytes (Spur) Not Reportable 05/02/17 09:39 Rouleaux Not Reportable 05/02/17 09:39 Hemoglobin C Crystals Not Reportable 05/02/17 09:39 Schistocytes Not Reportable 05/02/17 09:39 Malaria parasites Not Reportable 05/02/17 09:39 Dung Bodies Not Reportable 05/02/17 09:39 Hem Pathologist Commnt No 05/02/17 09:39 D-Dimer 138.19 ng/mlDDU (0-234) 05/02/17 10:35 Sodium 142 mmol/L (137-145) 05/03/17 05:46 Potassium 3.3 mmol/L (3.6-5.0) L 05/03/17 05:46 Chloride 102.7 mmol/L (98-107) 05/03/17 05:46 Carbon Dioxide 24 mmol/L (22-30) 05/03/17 05:46 Anion Gap 19 mmol/L 05/03/17 05:46 BUN 12 mg/dL (7-17) 05/03/17 05:46 Creatinine 0.6 mg/dL (0.7-1.2) L 05/03/17 05:46 Estimated GFR > 60 ml/min 05/03/17 05:46 BUN/Creatinine Ratio 20.00 % 05/03/17 05:46 Glucose 97 mg/dL (65-100) 05/03/17 05:46 Hemoglobin A1c 5.7 % (4-6) 05/02/17 22:27 Calcium 8.9 mg/dL (8.4-10.2) 05/03/17 05:46 Total Bilirubin 0.30 mg/dL (0.1-1.2) 05/03/17 05:46 Direct Bilirubin < 0.2 mg/dL (0-0.2) 05/02/17 10:35 Indirect Bilirubin 0.2 mg/dL 05/02/17 10:35 AST 12 units/L (5-40) 05/03/17 05:46 ALT 6 units/L (7-56) L 05/03/17 05:46 Alkaline Phosphatase 73 units/L (35-129) 05/03/17 05:46 Total Creatine Kinase 62 units/L (30-135) 05/03/17 05:46 CK-MB (CK-2) < 1.0 ng/mL (0.0-4.0) 05/03/17 05:46 CK-MB (CK-2) Rel Index 1.6 (0-4) 05/03/17 05:46 Troponin T < 0.010 ng/mL (0.00-0.029) 05/03/17 05:46 Total Protein 7.4 g/dL (6.3-8.2) 05/03/17 05:46 Albumin 3.8 g/dL (3.9-5) L 05/03/17 05:46 Albumin/Globulin Ratio 1.1 % 05/03/17 05:46 Lipase 22 units/L (13-60) 05/02/17 10:35 HCG, Qual Negative (Negative) 05/02/17 10:15 Urine Color Rosio (Yellow) 05/02/17 11:23 Urine Turbidity Cloudy (Clear) 05/02/17 11:23 Urine pH 5.0 (5.0-7.0) 05/02/17 11:23 Ur Specific [place] 1.035 (1.003-1.030) H 05/02/17 11:23 Urine Protein 100 mg/dl mg/dL (Negative) 05/02/17 11:23 Urine Glucose (UA) Neg mg/dL (Negative) 05/02/17 11:23 Urine Ketones 80 mg/dL (Negative) 05/02/17 11:23 Urine Blood Neg (Negative) 05/02/17 11:23 Urine Nitrite Neg (Negative) 05/02/17 11:23 Urine Bilirubin Sm (Negative) 05/02/17 11:23 Urine Ictotest Negative (Negative) 05/02/17 11:23 Urine Urobilinogen 4.0 mg/dL (<2.0) 05/02/17 11:23 Ur Leukocyte Esterase Tr (Negative) 05/02/17 11:23 Urine WBC (Auto) 18.0 /HPF (0.0-6.0) H 05/02/17 11:23 Urine RBC (Auto) 19.0 /HPF (0.0-6.0) 05/02/17 11:23 U Epithel Cells (Auto) 55.0 /HPF (0-13.0) H 05/02/17 11:23 Urine Bacteria (Auto) 2+ /HPF (Negative) 05/02/17 11:23 Urine Mucus 3+ /HPF 05/02/17 11:23 Urine HCG, Qual Negative (Negative) 05/02/17 11:23
[2017-05-03] MEDS: REGLAN IV SCH (19:50)
[2017-05-03 23:41] LABS: Bilirubin,Urine NEG (Negative); Blood,Urine NEG (Negative); Ketones,Urine NEG (Negative); Leukocyte Esterase,Urine NEG (Negative); Mucus,Urine 3+ /HPF; Nitrite,Urine NEG (Negative)
[2017-05-04] MEDS: KCL 10MEQ/100ML 10 MEQ/100 ML BAG IV SCH ×2 (01:13→03:14)
[2017-05-04] MEDS: REGLAN IV SCH (02:00)
--- NOTE | 2017-05-04 03:22 | Treadmill Report ---
THALLIUM STRESS TEST LEFT VENTRICLE: Left ventricular chamber size is within normal limits. Perfusion study demonstrates homogeneous uptake of the tracer in all segments, no significant perfusion defects identified. Gated analysis demonstrates normal left ventricular systolic function, ejection fraction 57%. CONCLUSION: Normal myocardial perfusion study. JOB# [id number] CA/NTS
[2017-05-04] MEDS: HEPARIN SUB-Q SCH (05:38)
[2017-05-04] MEDS: D5NS 1,000 ML IV SCH (06:14)
[2017-05-04] MEDS: PEPCID PO SCH (09:11)
[2017-05-04 12:33] VITALS: BP 98/75
== END 2017-05-04 13:30 | disposition home or self-care (01) | DRG 313 ==
LOC: ED 09:24 → 4A 13:15
PROVIDERS: ADMIT Internal Medicine; ATTEND Internal Medicine
PROC: 4A02XM4 Measurement of Cardiac Total Activity, External Approach (ICD-10-PCS; principal; 2017-05-02)
DX: R07.9 Chest pain, unspecified (principal); K29.00 Acute gastritis without bleeding; A08.4 Viral intestinal infection, unspecified; J45.20 Mild intermittent asthma, uncomplicated; F17.210 Nicotine dependence, cigarettes, uncomplicated; E87.6 Hypokalemia; I10 Essential (primary) hypertension; Z88.2 Allergy status to sulfonamides
CPT/HCPCS: 36415; 74022; 78452; 80048; 80053; 80074; 81001; 81025; 82550; 82553; 83036; 83690; 84484; 84703; 85007; 85025; 85379; 93005; 93010; 93017; 94640; 94760; 96374; 96375; 99406; A9502; J0780; J1170; J1644; J2270; J2405; J2765; J2785; J2930; J3480; J7030; J7042